=== PATIENT | male | born 1995 | race African-American/Black ===

== ENCOUNTER 2017-10-13 05:02 | Emergency (ER) | payer MEDICAID ==
[~2017-10-13] VITALS: Ht 170.2 cm; Wt 59.0 kg
[~2017-10-13 05:02] MED LIST: FOLI-43 PO; HYD PO; HYDR4TAB4 PO
[2017-10-13 05:04] VITALS: BP 114/64
== END 2017-10-13 05:20 | disposition left against medical advice (07) ==
LOC: ER 05:02
DX: R94.31 Abnormal electrocardiogram [ECG] [EKG] (principal); M79.1 Myalgia
CPT/HCPCS: 93005; 99283